=== PATIENT | male | born 1995 | race Caucasian/White ===

== ENCOUNTER → 2023-02-13 | Outpatient (CLI) | payer BC, SELFPAY ==
[2023-02-13 12:23] LABS: Absolute Lymphocyte Count 3.13 X10^3/uL (0.83-4.51); Absolute Neutrophil Count 7.8 X10^3/uL (2.0-7.7); Basophil% 0.8 % (0-1); Eosinophil# 0.18 X10^3/uL; Eosinophils% 1.5 % (0-5); Hematocrit 43.1 % (40-54); Hemoglobin 14.3 g/dL (13.0-16.5); Lymphocyte # 3.13 X10^3/ul (0.83-4.51); Lymphocyte % 26.1 % (19-41); Mean Corp Hgb Conc 33.2 g/dL (32-36); Mean Corpuscular Hgb 27.8 pg (27.0-32.0); Mean Corpuscular Volume 83.7 fL (80-94); Monocyte# 0.77 X10^3/uL; Monocyte% 6.4 % (0-10); NRBC Flagged by Analyzer 0 % (0-5); Neutrophil # 7.76 X10^3/uL (2.7-7.7); Neutrophil % 64.9 % (47-70); Platelet Count 439 K/mm3 (150-450); RBC Distribution Width CV 13.2 % (11.6-14.6); RBC Distribution Width SD 40.6 fl (35.1-43.9); Red Blood Count 5.15 M/mm3 (4.6-6.2)
[2023-02-13 12:42] LABS: AST(SGOT) 28 U/L (15-37); Alanine Aminotransfer ALT/SGPT 42 U/L (16-61); Alkaline Phosphatase 109 U/L (45-117); Anion Gap 7 (5-15); BUN 9 mg/dL (7-18); BUN/Creat Ratio 9.9 RATIO (10-20); Calcium,Total 9.1 mg/dL (8.5-10.1); Chloride 106 mmol/L (98-107); Cholesterol 233 mg/dL (200); Creatinine, Serum 0.91 mg/dL (0.70-1.30); EST Glomerular Filtration Rate 106 mL/min (>60); Est Glom Filt Rate - Afr Amer 128 mL/min (>60); Globulin 3.9 g/dL (2.2-4.2); Glucose 85 mg/dL (74-106); High Density Lipoprotein 41 mg/dL; Potassium 4.1 mmol/L (3.5-5.1); Protein, Total 7.9 g/dL (6.4-8.2); Sodium Level 139 mmol/L (136-145); T4 Free Direct 0.92 ng/dL (0.76-1.46); Thyroid Stim Hormone (TSH) 2.92 uIU/mL (0.358-3.74); Triglycerides 101 mg/dL; Very Low Density Lipoprotein 20 mg/dL (5-40)
[2023-02-13 12:47] LABS: T3 Total - Triiodothyronine 1.23 ng/mL (0.6-1.81); Vitamin D,25 Hydroxy 22.8 ng/mL
== END | disposition home or self-care (01) ==
LOC: BIMLAB 11:04
PROVIDERS: PCP Internal Medicine; Referring Provider Internal Medicine; Visit Provider Internal Medicine
DX: R00.2 Palpitations (principal); E07.9 Disorder of thyroid, unspecified; Z13.6 Encounter for screening for cardiovascular disorders
CPT/HCPCS: 36415; 80053; 80061; 82306; 84439; 84443; 84480; 85025

== ENCOUNTER → 2023-03-08 | Outpatient (CLI) | payer BC, SELFPAY ==
--- NOTE | 2023-03-08 08:53 | ECHOCS_ITS ---
Reason For Study: Palpitations Procedure This was a 2D Doppler, Color Flow transthoracic echocardiogram. Contrast injection was performed. Exam performed in department. Left Ventricle Normal LV size. Left ventricular systolic function is normal. The estimated ejection fraction is 60 %. No regional wall motion abnormalities noted. Right Ventricle Normal RV size. Normal systolic function. Atria Normal left atrium. Normal right atrium. Mitral Valve Normal mitral valve. Tricuspid Valve Normal tricuspid valve. Mild tricuspid valve insufficiency. Aortic Valve Trisinus/trileaflet aortic valve. Pulmonic Valve Normal pulmonic valve. Great Vessels Normal aortic root. The pulmonary artery is normal size. Normal inferior vena cava. Pericardium/Pleural No pericardial effusion. Medication Diluted definity 2.5ml given slow IV push to enhance endocardial definition. MMode/2D Measurements & Calculations LVIDd: 5.1 cm IVSd: 1.0 cm Ao root diam: 2.9 cm LVIDs: 3.4 cm LVPWd: 0.97 cm RVDd: 4.6 cm FS: 33.2 % LAV(MOD-bp): 30.1 ml LVAd ap4: 35.6 cm2 SV(MOD-sp4): 79.5 ml LAV(MOD-bp) Indexed: 13.2 ml/m2 LVLd ap4: 8.7 cm LAV(MOD-sp2): 27.4 ml EDV(MOD-sp4): 120.1 ml LAV(MOD-sp4): 29.4 ml EDV(sp4-el): 123.9 ml LVAs ap4: 18.1 cm2 LVLs ap4: 6.6 cm ESV(MOD-sp4): 40.6 ml ESV(sp4-el): 41.7 ml EF(MOD-sp4): 66.2 % EF(sp4-el): 66.4 % SV(sp4-el): 82.2 ml LA A4 area: 12.9 cm2 LA dimension(2D): 3.7 cm RA A4 area: 14.0 cm2 Time Measurements MV dec time: 0.21 sec Doppler Measurements & Calculations MV E max jesus: 120.7 cm/sec Lat Peak E' Jesus: 15.2 cm/sec Med Peak E' Jesus: 10.5 cm/sec MV A max jesus: 42.5 cm/sec E/E' lat: 8.0 E/E' med: 11.5 MV E/A: 2.8 MV dec slope: 577.4 cm/sec2 Ao V2 max: 120.6 cm/sec LV V1 max: 102.1 cm/sec Ao max P.8 mmHg LV V1 max P.2 mmHg Ao V2 mean: 81.5 cm/sec Ao mean P.1 mmHg Ao V2 VTI: 26.9 cm PA V2 max: 90.5 cm/sec PI end-d jesus: 107.1 cm/sec TR max jesus: 255.1 cm/sec TR max P.0 mmHg ECHO/Echo Complete W/ Contrast Interpretation Summary Normal LV size. Left ventricular systolic function is normal. The estimated ejection fraction is 60 %. Mild tricuspid valve insufficiency. Contrast injection was performed. Ordering Physician: Tahira Fink Referring Physician: Tahira Fink Performed By: Vandana Voss, MAURISIO, RVT
== END | disposition home or self-care (01) ==
LOC: CVS 08:51
PROVIDERS: PCP Internal Medicine; Referring Provider Internal Medicine; Visit Provider Internal Medicine
DX: R00.2 Palpitations (principal); E07.9 Disorder of thyroid, unspecified
CPT/HCPCS: 93306; Q9957; A4216; C8929

== ENCOUNTER → 2023-05-31 | Outpatient (CLI) | payer BC, SELFPAY ==
[2023-05-31 08:15] LABS: Bacteria 0 SEEN /hpf (None Seen); Mucous, Urine 0 SEEN /hpf (<or=2+); Red Blood Cells-Urine 0 SEEN /hpf (0-5); Squamous Epithelial Cells - UA 0 SEEN /hpf (0-5); White Blood Cells 0 SEEN /hpf (0-5)
[2023-05-31 12:33] LABS: Absolute Lymphocyte Count 2.77 X10^3/uL (0.83-4.51); Absolute Neutrophil Count 5.9 X10^3/uL (2.0-7.7); Eosinophil# 0.16 X10^3/uL; Eosinophils% 1.6 % (0-5); Hematocrit 48.4 % (40-54); Hemoglobin 15.4 g/dL (13.0-16.5); Lymphocyte # 2.77 X10^3/ul (0.83-4.51); Lymphocyte % 28.4 % (19-41); Mean Corp Hgb Conc 31.8 g/dL (32-36); Mean Corpuscular Hgb 27.7 pg (27.0-32.0); Mean Corpuscular Volume 87.2 fL (80-94); Mean Platelet Vol. 10.4 fl (6.2-12.0); Monocyte# 0.75 X10^3/uL; Monocyte% 7.7 % (0-10); NRBC Flagged by Analyzer 0 % (0-5); Neutrophil # 5.92 X10^3/uL (2.7-7.7); Neutrophil % 60.8 % (47-70); Platelet Count 462 K/mm3 (150-450); RBC Distribution Width CV 12.8 % (11.6-14.6); RBC Distribution Width SD 41.1 fl (35.1-43.9); Red Blood Count 5.55 M/mm3 (4.6-6.2); White Blood Count 9.8 K/mm3 (4.4-11.0)
[2023-05-31 12:34] LABS: Color, Urine Yellow (Yellow); Glucose, Dipstick Normal (Normal); Ketone-Dipstick Negative (Negative); Leukocyte Esterase-Dipstick Negative /ul (Negative); Nitrite-Dipstick Negative (Negative); Occult Blood-Urine Negative /ul (Negative); Protein-Dipstick Negative (Negative); Urine Bilirubin Dipstick Negative (Negative); Urine Clarity Clear (Clear); Urine Urobilinogen Normal (Normal)
[2023-05-31 13:17] LABS: PSA,Total- Diagnostic 1.21 ng/mL (0.0-4.0)
[2023-06-06 12:09] LABS: Testosterone, % Free 2.86 % (1.50-4.20); Testosterone, Free 8.44 ng/dL (5.00-21.00); Testosterone, Total 295 ng/dL (264-916)
== END | disposition home or self-care (01) ==
LOC: BIMLAB 08:14
PROVIDERS: PCP Internal Medicine; Referring Provider Internal Medicine; Visit Provider Internal Medicine
DX: R53.83 Other fatigue (principal); R35.0 Frequency of micturition
CPT/HCPCS: 36415; 81001; 84153; 84402; 84403; 85025

== ENCOUNTER → 2023-08-08 | Outpatient (CLI) | payer BC, SELFPAY | END | disposition home or self-care (01) | LOC: SL 11:29 | PROVIDERS: PCP Internal Medicine; Referring Provider Internal Medicine; Visit Provider Internal Medicine | DX: G47.10 Hypersomnia, unspecified (principal); R29.818 Other symptoms and signs involving the nervous system | CPT/HCPCS: 95806 ==

== ENCOUNTER → 2023-09-11 | Outpatient (CLI) | payer BC, SELFPAY | END | disposition home or self-care (01) | LOC: SL 19:53 | PROVIDERS: PCP Internal Medicine; Referring Provider Internal Medicine; Visit Provider Internal Medicine | DX: G47.10 Hypersomnia, unspecified (principal); R29.818 Other symptoms and signs involving the nervous system | CPT/HCPCS: 95810 ==

== ENCOUNTER → 2023-10-03 | Outpatient (CLI) | payer BC, SELFPAY | END | disposition home or self-care (01) | LOC: SL 13:49 | PROVIDERS: PCP Internal Medicine; Visit Provider Internal Medicine | DX: Z46.89 Encounter for fitting and adjustment of other specified devices (principal) ==

== ENCOUNTER → 2023-10-10 | Outpatient (CLI) | payer BC, SELFPAY ==
--- OUTSIDE RECORDS SUMMARY | 2023-10-10 12:34 | XMS RPT_ITS | CCD ---
Author Name Unknown Address [address] [place] [address] Organization [facility] Care Team Providers Care Toppiece Cutter Name Role Phone Unavailable Primary Care Provider Unavailabl e Results Test Name Value Interpretation Reference Range Facil ity Encounters Encounter Date Encounter Type Care Provider Facility Start: 03-17-2017 End: 03-17-2017 Patient encounter procedure [facility] Provider [facility] in Start: 03-17-2017 Results Only Evans Provider [facility] Procedures Date Procedure Procedure Detail Performing Clinician Start: 03-17-2017 CONVERTED SURGICAL PATHOLOGY Evans Provider Plan of Treatment Date Care Activity Detail Author Start: 06-14-2020 Influenza vaccination INFLUENZA (#1) [facility] Start: 2014 Urine microalbumin profile DTAP,TDAP ,TD (1 - Tdap) [facility] Start: 2013 HEPATITIS C SCREENING HEPATITIS C AK MENDEZ [facility] Start: 2013 HIV SCREENING HIV SCREENING [facility] Start: 2006 HPV VACCINE (1 - Mal e 2-dose series) HPV VACCINE (1 - Male 2-dose series) [facility] Social History Date Type Detail Facility Tobacco smoking status NHIS Unknown if ev er smoked [facility] Sex Assigned At Not on file [facility] Summary Purpose Family History No Family History Records Found Advance Directives No Advanced Directives Records Found Additional Source Comments (unrecognized sect ion and content) No Status Records Found INFORMATION SOURCE (unrecogn ized section and content) Source Comments (unrecognize d section and content) In the event this informatio n is protected by the Federal Confidentiality of Alcohol and Drug Abuse Patient Records regulations: The Federal rules restrict any use of the information to criminally investigate or prosecute any alcohol or drug abuse patient.[facility] FOR RECORDS PERTAINING TO PATIENTS WHO ARE OR HAVE BEEN ENROLLED IN A CHEMICAL DEPENDENCY/SUBSTANCEABUSE PROGRAM, SOME INFORMATION MAY BE OMITTED. This clinical summary was aggregated from multiple sources. Caution should be exercised in using it in the provision of clinical care. This summary normalizes information from multiple sources, and as a consequence, information in this document may materially change the coding, format and clinical context of patient data. In addition, data may be omitted in some cases. CLINICAL DECISIONS SHOULD BE BASED ON THE PRIMARY CLINICAL RECORDS. [employer] [facility]. provides no warranty or guarantee of the accuracy or completeness of information in this document.
== END | disposition home or self-care (01) ==
LOC: SL 12:10
PROVIDERS: PCP Internal Medicine; Visit Provider Internal Medicine
DX: Z46.89 Encounter for fitting and adjustment of other specified devices (principal)

== ENCOUNTER → 2024-01-23 | Outpatient (CLI) | payer BC, SELFPAY ==
[2024-01-23 12:04] LABS: Absolute Lymphocyte Count 1.64 X10^3/uL (0.83-4.51); Absolute Neutrophil Count 4.9 X10^3/uL (2.0-7.7); Basophil# 0.05 X10^3/uL; Basophil% 0.7 % (0-1); Eosinophil# 0.11 X10^3/uL; Eosinophils% 1.5 % (0-5); Hematocrit 43.2 % (40-54); Hemoglobin 14.1 g/dL (13.0-16.5); Lymphocyte # 1.64 X10^3/ul (0.83-4.51); Lymphocyte % 22.7 % (19-41); Mean Corp Hgb Conc 32.6 g/dL (32-36); Mean Corpuscular Hgb 28.3 pg (27.0-32.0); Mean Corpuscular Volume 86.6 fL (80-94); Monocyte# 0.54 X10^3/uL; Monocyte% 7.5 % (0-10); NRBC Flagged by Analyzer 0 % (0-5); Neutrophil # 4.86 X10^3/uL (2.7-7.7); Neutrophil % 67.3 % (47-70); Platelet Count 430 K/mm3 (150-450); RBC Distribution Width CV 13.2 % (11.6-14.6); RBC Distribution Width SD 41.6 fl (35.1-43.9); Red Blood Count 4.99 M/mm3 (4.6-6.2); White Blood Count 7.2 K/mm3 (4.4-11.0)
[2024-01-23 12:16] LABS: AST(SGOT) 21 U/L (15-37); Alanine Aminotransfer ALT/SGPT 27 U/L (16-61); Albumin, Serum 3.8 g/dL (3.2-5.0); Alkaline Phosphatase 105 U/L (45-117); Anion Gap 4 (5-15); BUN 16 mg/dL (7-18); BUN/Creat Ratio 17.8 RATIO (10-20); Calcium,Total 8.7 mg/dL (8.5-10.1); Chloride 110 mmol/L (98-107); Cholesterol 159 mg/dL (200); EST Glomerular Filtration Rate 107 mL/min (>60); Est Glom Filt Rate - Afr Amer 129 mL/min (>60); Globulin 3.8 g/dL (2.2-4.2); Glucose 86 mg/dL (74-106); High Density Lipoprotein 46 mg/dL; Protein, Total 7.6 g/dL (6.4-8.2); Sodium Level 140 mmol/L (136-145); Triglycerides 48 mg/dL; Very Low Density Lipoprotein 10 mg/dL (5-40)
== END | disposition home or self-care (01) ==
LOC: BIMLAB 08:34
PROVIDERS: PCP Internal Medicine; Referring Provider Internal Medicine; Visit Provider Internal Medicine
DX: F41.9 Anxiety disorder, unspecified (principal); E78.2 Mixed hyperlipidemia; G47.33 Obstructive sleep apnea (adult) (pediatric)
CPT/HCPCS: 36415; 80053; 80061; 85025

== ENCOUNTER 2024-05-18 09:11 | Emergency (ER) | payer BC, SELFPAY ==
[2024-05-18 09:12] VITALS: BP 150/88; PULSE 108; RESP 16; TEMP 35.4; O2SAT 100
--- NOTE | 2024-05-18 09:35 | EDS_ITS ---
HPI History of Present Illness Chief Complaint: Numb/Ting Informant: patient Onset/Context/Timing Onset: Days Context: Gradual Onset Timing: Continuous Current Severity: Mild Narrative Narrative: 28-year-old male history of ADHD and anxiety. Says he had tingling all over. He is having mild nausea. No vomiting. No diarrhea. No weakness. No incontinence. Patient has used different anxiety meds in the past without significant relief and side effects that he did not like. He currently is seeing a counselor. Prior similar symptoms: Yes Recent Illness/Hospitalization: No PFSH PFSH Medical History ADHD RAFA (generalized anxiety disorder) Thyroid disease Allergies Gonorrhea Home Medications ?Medication ?Instructions ?Recorded ?Last Taken ?Type cetirizine 10 mg capsule (Zyrtec) 10 mg PO DAILY PRN allergy symptoms 01/28/23 Unknown History albuterol sulfate 90 mcg/actuation 2 puff inhalation Q6H PRN 10/31/23 Unknown History aerosol inhaler shortness of breath or wheezing fluticasone propionate 50 2 spray intranasal DAILY PRN 11/07/23 Unknown History mcg/actuation nasal allergy symptoms spray,suspension (Flonase Allergy Relief) Allergy/AdvReac Type Severity Reaction Status Date / Time No Known Allergies Allergy Verified 05/18/24 09:19 Family History Other Adopted Surgical History Hx of appendectomy [place] teeth extracted Social History household members: family current occupational status: employed current occupation: rear load truck driver Smoking Status: Former smoker Smokeless tobacco user: other Electronic Cigarette Use: with nicotine alcohol intake: current alcohol intake frequency: a few times a month substance use type: does not use what type of physical activity do you participate in: walking do you feel safe at home: Yes ROS ROS ED ROS Narrative Denies recent illness. Constitutional Constitutional ED: Denies chills or fever(s) Eyes Eyes: Denies blurry vision ENT ENT ED: Denies ear pain Cardiovascular Cardiovascular: Denies chest pain Respiratory/Chest Respiratory/Chest: Denies cough or dyspnea Gastrointestinal Gastrointestinal: Reports nausea; Denies abdominal pain, constipation, diarrhea, melena or vomiting Genitourinary Genitourinary ED: Denies dysuria or hematuria Musculoskeletal Musculoskeletal: Denies arthralgias Integumentary Denies abscess Neurologic Neurologic: Denies headache(s) Psychiatric Psychiatric: Denies anxiety Endocrine Endocrinology: Denies cold intolerance Hematologic/Lymphatic Hematologic/Lymphatic: Reports none Allergic/Immunologic Allergic/Immunologic ED: Denies mouth swelling, tongue swelling or urticaria EXAM Physical Exam Narrative Exam Narrative: Very well-appearing 20-year-old male. Vital signs are stable afebrile. H EENT exam normal. No droop. Normal speech. Pupils are round reactive light. Extra motions are intact. Neck nontender. Lungs clear to auscultation. Heart regular rhythm rate about 100 no murmur. Chest wall and ribs nontender. Abdomen soft nontender. Moving all 4 extremities. 5 out of 5 mural artist strength. Dorsi plantarflexion intact. He is awake and alert. Answering questions following commands. Neurologic exam normal. NIH is 0. Fingertip to nose and [id number] within normal limits. Back nontender. Const Vital Signs: 05/18/24 09:12 Temperature 95.8 F L Temperature Source Temporal Pulse Rate 108 H Respiratory Rate 16 Blood Pressure 150/88 H Blood Pressure Mean 108 Pulse Ox 100 Oxygen Delivery Method Room Air Positive well nourished and well developed; Negative for cachectic, contractures or unkempt General Appearance ED: well developed and NAD; Negative for unkempt, cachectic, contractures, cyanotic, diaphoretic or pallor Nutritional Appearance: Negative for cachectic HEENT Reports moist mucous membranes Negative for trauma or tenderness Eyes PERRL and EOMs intact bilaterally General Eye ED: Negative for pale conjunctiva, scleral icterus or other Neck no lymphadenopathy, supple and no JVD General: Negative for tenderness Lymph Lymphatic: Negative for other Chest Wall inspection of chest normal and palpation of chest normal Chest: Negative for other Resp normal respiratory effort and clear to auscultation bilaterally Effort and Inspection: Negative for retractions, pain with movement or other Auscultation: Negative for rales, rhonchi, wheezes or diminished lung sounds Cardio regular rate, regular rhythm, S1 normal heart sound, S2 normal heart sound and no murmurs Palpation: Negative for palpable S3 or palpable S4 Rate: Negative for bradycardia, tachycardic or other Rhythm: Negative for abnormal rhythm GI normal to inspection, nondistended, normoactive bowel sounds, non-tender, non- distended and no masses Inspection: Negative for abdominal distention Auscultation: normoactive bowel sounds Palpation: soft; Negative for tender, guarding or rebound tenderness present Back/Spine no CVA tenderness General Back: Negative for CVA tenderness or other Cervical Spine: Negative for cervical spine tenderness Thoracic Spine / Upper Back: Negative for thoracic spinal tenderness or paraspinal muscle tenderness Lumbar Spine / Lower Back: Negative for lumbar spinal tenderness Extremity normal to inspection General Extremety ED: Negative for edema, tenderness or other findings General Extremity: Negative for edema or other findings Neuro oriented x3 and CN's II-XII intact bilaterally Sensorium / Orientation: alert; Negative for orientation impaired, lethargic or stuporous Motor Exam: strength 5/5 throughout; Negative for general weakness or strength abnormal Psych mental status grossly normal Appearance: Negative for unkempt Attitude: No agitated Mood & Affect: Negative for depressed, anxious or tearful Skin no rashes or lesions noted, no wounds and skin turgor normal General Skin Exam: elasticity normal; Negative for jaundice or pallor Lesions: No lesion noted Rashes: No rashes noted Trauma: Negative for abrasion Wounds: Negative for wounds noted MDM MDM MDM Narrative Medical decision making narrative: 28-year-old male complaining of bilateral tingling. He has a completely normal exam and a normal neurologic exam. His vital signs are unremarkable. He denies discussed that I felt this is secondary to anxiety. 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 He drove here today. He is comfortable following up with his counselor and primary care physician. I do not feel any labs or imaging would be of any benefit today. He is comfortable with the plan. Discharge Plan Triage Chief Complaint: Numb/Ting ED Provider: Chad Cooley Dx/Rx/DC Orders Clinical Impression: Anxiety Instructions: Anxiety Disorders Tx Prescriptions: No Action Zyrtec 10 mg capsule 10 mg PO DAILY PRN (Reason: allergy symptoms) albuterol sulfate 90 mcg/actuation HFA aerosol inhaler 2 puff inhalation Q6H PRN (Reason: shortness of breath or wheezing) fluticasone propionate [Flonase Allergy Relief] 50 mcg/actuation spray,suspension 2 spray intranasal DAILY PRN (Reason: allergy symptoms) Rx Instructions: administer into each nostril Primary Care Provider: Tahira Fink Referrals: Tahira Fink MD [Primary Care Provider] - As soon as possible Activity Restrictions/Additional Instructions: This all seems to be related to anxiety. Your exam is normal. Follow-up with your counselor for ways to deal with anxiety. Such as exercise, reading, meditation, walks excetra. Print Language: Mongolian Disposition Disposition: Home, Self Care
[2024-05-18 09:42] VITALS: BP 117/83; PULSE 89; RESP 16; TEMP 36.4; O2SAT 99
== END 2024-05-18 09:57 | disposition home or self-care (01) ==
LOC: ED 09:54
PROVIDERS: Emergency Provider Emergency Medicine; PCP Internal Medicine; Visit Provider Emergency Medicine
DX: F41.9 Anxiety disorder, unspecified (principal); R11.0 Nausea; Z79.899 Other long term (current) drug therapy; Z87.891 Personal history of nicotine dependence
CPT/HCPCS: 99282

== ENCOUNTER 2024-05-19 07:56 | Emergency (ER) | payer BC, SELFPAY ==
[2024-05-19 07:56] VITALS: BP 128/84; PULSE 114; RESP 16; TEMP 35.3; O2SAT 96
--- NOTE | 2024-05-19 08:10 | EKG12_ITS ---
Test Reason : NUMBNESS Blood Pressure : / mmHG Vent. Rate : 091 BPM Atrial Rate : 091 BPM P-R Int : 136 ms QRS Dur : 082 ms QT Int : 354 ms P-R-T Axes : 046 -01 018 degrees QTc Int : 435 ms Normal sinus rhythm Normal ECG Confirmed by Gordon Hooper [id number]), design editor JOVITA KOHLER ([id number]) on 05/21/2024 9:25:11 AM Referred By: Confirmed By:Gordon Hooper
--- NOTE | 2024-05-19 08:13 | EDS_ITS ---
HPI History of Present Illness Chief Complaint: Numb/Ting Narrative Narrative: 28-year-old male past medical history of generalized anxiety disorder, presents with numbness and tingling of his arms and legs that has had since yesterday morning. Initially it was his hands and feet. He was seen in the emergency department yesterday, and was discharged. He states that it has not gone away, and this morning it is worse. He states that he has discomfort and tingling in his bilateral legs up to the level of his thigh. Additionally, the numbness and tingling and discomfort of his arms goes past the elbow. He denies any exacerbating or alleviating factors. He presents with his father today. [facility] Medical History ADHD RAFA (generalized anxiety disorder) Thyroid disease Allergies Gonorrhea Home Medications ?Medication ?Instructions ?Recorded ?Last Taken ?Type cetirizine 10 mg capsule (Zyrtec) 10 mg PO DAILY PRN allergy symptoms 01/28/23 Unknown History albuterol sulfate 90 mcg/actuation 2 puff inhalation Q6H PRN 10/31/23 Unknown History aerosol inhaler shortness of breath or wheezing fluticasone propionate 50 2 spray intranasal DAILY PRN 11/07/23 Unknown History mcg/actuation nasal allergy symptoms spray,suspension (Flonase Allergy Relief) hydroxyzine pamoate 25 mg capsule 50 mg (2 x 25 mg) PO TID PRN 05/19/24 Unknown Rx (Vistaril) anxiety #20 caps Allergy/AdvReac Type Severity Reaction Status Date / Time No Known Allergies Allergy Verified 05/19/24 08:25 Family History Other Adopted Surgical History Hx of appendectomy [place] teeth extracted Social History household members: family current occupational status: employed current occupation: local [employer] truck driver Smoking Status: Former smoker Smokeless tobacco user: other Electronic Cigarette Use: with nicotine alcohol intake: current alcohol intake frequency: a few times a month substance use type: does not use what type of physical activity do you participate in: walking do you feel safe at home: Yes ROS ROS ED ROS Narrative Constitutional: No fever, positive chills. HEENT: No sore throat. No neck pain. No loss of vision. No rhinorrhea. Cardiovascular: No chest pain. No palpitations. No pedal edema. Respiratory: No cough, no shortness of breath. Abdominal: No abdominal pain. No nausea. No vomiting. Genitourinary: No dysuria. No hematuria. Musculoskeletal: Discomfort in bilateral arms and legs no arthralgias. Neurologic: No headaches. No dizziness. No lightheadedness. Positive paresthesias of arms and legs. Skin: No rash. No change in color. Psychiatric: No depression. History of anxiety. EXAM Physical Exam Narrative Exam Narrative: Afebrile. Vital signs noted. Nontoxic-appearing. Cardiovascular examination reveals a positive tachycardia, no murmurs rubs or gallops appreciated. Lungs are clear to auscultation bilaterally. Abdomen soft nontender with normal active bowel sounds. Neurological examination is nonfocal and nonlateralizing. Awake, alert, oriented x 3. Normal cerebellar functioning and pxnirm-lt-oxkg and iyvk-[id number]. NIH stroke scale is 0. Const Vital Signs: 05/19/24 07:56 Temperature 95.6 F L Temperature Source Temporal Pulse Rate 114 H Respiratory Rate 16 Blood Pressure 128/84 H Blood Pressure Mean 98 Pulse Ox 96 Oxygen Delivery Method Room Air MDM MDM MDM Narrative Medical decision making narrative: I reviewed the patient's prior ED visit from yesterday. He does not really like to take medications because he is a local [employer] truck driver, and laboratory tests were not performed. Differential diagnosis includes but not limited to generalized anxiety/panic attack versus paresthesias secondary to electrolyte abnormality versus dehydration. He really has not had any fevers, vomiting, or diarrhea [place] electrolytes. Given that this is a second visit, and he has not seen his primary care provider in a few months, I do feel that baseline laboratories are indicated and he will be bolused normal saline 1 L intravenously in the event that he has any intravascular volume depletion. EKG was obtained and interpreted by myself independently as normal sinus rhythm at 91 bpm without ectopy or acute ST changes. No STEMI. I reviewed his laboratory work and he has normal white count of 7.2, hemoglobin normal at 13.5, platelet count normal at 273. CMP is significant for slightly elevated LFTs with an AST of 63, ALT 110, and alk phos also elevated. This is more nonspecific and I do not feel he needs any acute imaging of his abdomen. I think that his paresthesias may be anxiety and stress related with his history of generalized anxiety disorder and his problem list. Repeat examination after IV fluids at approximately 9:45 AM shows him to subjectively feel the same. He is resting comfortably on the cot. He will have his LFTs rechecked in the next few weeks by his primary care provider and follow-up as an outpatient. He was administered Vistaril 50 mg orally here and prescription written for 20 tablets to take 25 to 50 mg up to 3 times a day as needed. He will follow-up with his psychiatric counselor, stating he has an appointment sometime this month, but he will attempt to move up the appointment. I feel he can be discharged safely home with follow-up. Return instructions reviewed. Disposition is discharged home in stable condition. History & Record Review Discussion w/independent historian: Patient Lab Data Attestation: I reviewed the patient's lab results. Labs: Laboratory Results - last 24 hr 05/19/24 08:20 WBC 7.2 RBC 4.97 Hgb 13.5 Hct 40.6 MCV 81.7 MCH 27.2 MCHC 33.3 RDW Std Deviation 38.5 RDW Coeff of Hollie 12.9 Plt Count 273 MPV 9.9 Immature Gran % (Auto) 0.600 Neut % (Auto) 46.4 L Lymph % (Auto) 44.2 H [place] % (Auto) 6.2 Eos % (Auto) 1.2 Baso % (Auto) 1.4 H Absolute Neuts (auto) 3.4 Absolute Lymphs (auto) 3.20 Nucleated RBC % 0 Sodium 139 Potassium 3.8 Chloride 105 Carbon Dioxide 26.0 Anion Gap 8 BUN 8 Creatinine 0.92 Est GFR (MDRD) Af Amer 126 Est GFR (MDRD) Non-Af 104 BUN/Creatinine Ratio 8.7 L Glucose 92 Calcium 8.8 Magnesium 2.1 Total Bilirubin 0.80 AST 63 H ALT 110 H Alkaline Phosphatase 130 H Total Protein 7.6 Albumin 3.5 Globulin 4.1 Albumin/Globulin Ratio 0.9 Discharge Plan Triage Chief Complaint: Numb/Ting ED Provider: Arnulfo Bernal Dx/Rx/DC Orders Clinical Impression: RAFA (generalized anxiety disorder), Paresthesias, Elevated LFTs Instructions: ED Paraesthesias Prescriptions: New hydroxyzine pamoate [Vistaril] 25 mg capsule 50 mg PO TID PRN (Reason: anxiety) Qty: 20 0RF No Action Zyrtec 10 mg capsule 10 mg PO DAILY PRN (Reason: allergy symptoms) albuterol sulfate 90 mcg/actuation HFA aerosol inhaler 2 puff inhalation Q6H PRN (Reason: shortness of breath or wheezing) fluticasone propionate [Flonase Allergy Relief] 50 mcg/actuation spray,suspension 2 spray intranasal DAILY PRN (Reason: allergy symptoms) Rx Instructions: administer into each nostril Primary Care Provider: Tahira Fink Referrals: Tahira Fink MD [Primary Care Provider] - 1 Week if not improving Activity Restrictions/Additional Instructions: You had abnormal laboratory values and your liver function tests today. Have them rechecked in a few weeks by your primary care provider. Return with new or worsening symptoms. Print Language: Comoran Disposition Disposition: Home, Self Care
[2024-05-19] MEDS: 0.9% Normal Saline (1000mL) 1,000 ML 999 ML IV (08:30)
[2024-05-19 09:01] LABS: Absolute Neutrophil Count 3.4 X10^3/uL (2.0-7.7); Basophil% 1.4 % (0-1); Eosinophil# 0.09 X10^3/uL; Eosinophils% 1.2 % (0-5); Hematocrit 40.6 % (40-54); Hemoglobin 13.5 g/dL (13.0-16.5); Lymphocyte % 44.2 % (19-41); Mean Corp Hgb Conc 33.3 g/dL (32-36); Mean Corpuscular Hgb 27.2 pg (27.0-32.0); Mean Corpuscular Volume 81.7 fL (80-94); Mean Platelet Vol. 9.9 fl (6.2-12.0); Monocyte# 0.45 X10^3/uL; Monocyte% 6.2 % (0-10); NRBC Flagged by Analyzer 0 % (0-5); Neutrophil # 3.36 X10^3/uL (2.7-7.7); Neutrophil % 46.4 % (47-70); POSITIVE MORPHOLOGY YES; Platelet Count 273 K/mm3 (150-450); RBC Distribution Width CV 12.9 % (11.6-14.6); RBC Distribution Width SD 38.5 fl (35.1-43.9); Red Blood Count 4.97 M/mm3 (4.6-6.2); White Blood Count 7.2 K/mm3 (4.4-11.0)
[2024-05-19 09:08] LABS: Differential Indicated SCAN CRITERIA MET
[2024-05-19 09:20] LABS: ALB/GLOB Ratio 0.9 RATIO (0.9-2.4); AST(SGOT) 63 U/L (15-37); Alanine Aminotransfer ALT/SGPT 110 U/L (16-61); Albumin, Serum 3.5 g/dL (3.2-5.0); Alkaline Phosphatase 130 U/L (45-117); Anion Gap 8 (5-15); BUN 8 mg/dL (7-18); BUN/Creat Ratio 8.7 RATIO (10-20); Calcium,Total 8.8 mg/dL (8.5-10.1); Chloride 105 mmol/L (98-107); Creatinine, Serum 0.92 mg/dL (0.70-1.30); EST Glomerular Filtration Rate 104 mL/min (>60); Est Glom Filt Rate - Afr Amer 126 mL/min (>60); Globulin 4.1 g/dL (2.2-4.2); Glucose 92 mg/dL (74-106); Magnesium 2.1 mg/dL (1.6-2.6); Potassium 3.8 mmol/L (3.5-5.1); Protein, Total 7.6 g/dL (6.4-8.2); Sodium Level 139 mmol/L (136-145)
[2024-05-19] MEDS: hydrOXYzine PAM 25 MG Capsule 50 MG PO (09:50)
[2024-05-19 09:57] VITALS: BP 127/66; PULSE 73; RESP 15; TEMP 36.4; O2SAT 98
== END 2024-05-19 09:58 | disposition home or self-care (01) ==
PROVIDERS: Emergency Provider Emergency Medicine; PCP Internal Medicine; Visit Provider Emergency Medicine
DX: F41.1 Generalized anxiety disorder (principal); R20.2 Paresthesia of skin; R94.5 Abnormal results of liver function studies; Z87.891 Personal history of nicotine dependence
CPT/HCPCS: 80053; 83735; 85025; 93005; 96360; 99283; J7030; A4216

== ENCOUNTER → 2024-10-20 | Outpatient (CLI) | payer BC, SELFPAY ==
[2024-10-20 16:41] LABS: Absolute Lymphocyte Count 3.46 X10^3/uL (0.83-4.51); Absolute Neutrophil Count 2.9 X10^3/uL (2.0-7.7); Basophil# 0.05 X10^3/uL; Basophil% 0.7 % (0-1); Eosinophil# 0.12 X10^3/uL; Eosinophils% 1.7 % (0-5); Hematocrit 39.1 % (40-54); Hemoglobin 12.8 g/dL (13.0-16.5); Lymphocyte # 3.46 X10^3/ul (0.83-4.51); Lymphocyte % 48.3 % (19-41); Mean Corp Hgb Conc 32.7 g/dL (32-36); Mean Corpuscular Hgb 27.3 pg (27.0-32.0); Mean Corpuscular Volume 83.4 fL (80-94); Mean Platelet Vol. 9.7 fl (6.2-12.0); Monocyte# 0.62 X10^3/uL; Monocyte% 8.7 % (0-10); NRBC Flagged by Analyzer 0 % (0-5); Neutrophil # 2.88 X10^3/uL (2.7-7.7); Neutrophil % 40.2 % (47-70); Platelet Count 361 K/mm3 (150-450); RBC Distribution Width CV 15.4 % (11.6-14.6); RBC Distribution Width SD 46.5 fl (35.1-43.9); Red Blood Count 4.69 M/mm3 (4.6-6.2); White Blood Count 7.2 K/mm3 (4.4-11.0)
[2024-10-20 17:27] LABS: Vitamin D,25 Hydroxy 34.3 ng/mL
[2024-10-20 17:38] LABS: ALB/GLOB Ratio 0.9 RATIO (0.9-2.4); AST(SGOT) 23 U/L (15-37); Alanine Aminotransfer ALT/SGPT 38 U/L (16-61); Albumin, Serum 3.9 g/dL (3.2-5.0); Alkaline Phosphatase 99 U/L (45-117); Anion Gap 4 (5-15); BUN 12 mg/dL (7-18); BUN/Creat Ratio 19.4 RATIO (10-20); Calcium,Total 9.2 mg/dL (8.5-10.1); Chloride 106 mmol/L (98-107); Creatinine, Serum 0.62 mg/dL (0.70-1.30); EST Glomerular Filtration Rate 163 mL/min (>60); Est Glom Filt Rate - Afr Amer 197 mL/min (>60); Globulin 4.4 g/dL (2.2-4.2); Glucose 87 mg/dL (74-106); Protein, Total 8.3 g/dL (6.4-8.2); Sodium Level 138 mmol/L (136-145)
== END | disposition home or self-care (01) ==
LOC: BIMLAB 14:06
PROVIDERS: PCP Internal Medicine; Referring Provider Internal Medicine; Visit Provider Internal Medicine
DX: G61.0 Guillain-Barre syndrome (principal); E55.9 Vitamin D deficiency, unspecified
CPT/HCPCS: 36415; 80053; 82306; 85025

== ENCOUNTER 2024-12-24 14:00 | Outpatient (RCR) | payer BC, SELFPAY ==
--- NOTE | 2024-09-23 15:42 | HP.OTEVAL ---
Patient's Visit Information Visit Information Visit Information: SEBASTIAN FRANK is a 28 year old M, referred to Occupational Therapy by Dr. Martin Cota MD, with a diagnosis of Guillain- [place] Syndrome. 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 pt symptoms started May 17 2024 ventilated by May 21 2024. Symptoms started with hands and feet did not started to get movement back until jul 11. Pt transferred to [facility] Aug 14 no longer ventilated had trach. pt is now currently approx 4 months since start of symptoms. Pt at [facility] for 39 days total was able to walk out with walker. pt wears B AFOs. Pt does have muscle spasms per pt report all over in which he is on medication for. pt with difficulty with coordination at this time states approx 75% of motor control has returned. 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 Pt is R hand dominant. pt states hands are numb and tingling. can feel tops of hands but not pads of hands. Pain BLE: Current Pain Intensity: 5 Objective Objective/Observation: pr arrives in wheelchair as well as B AFOs. Able to self propel chair retirement back to OT section then requests his father to assist with remainder pushing him to back ROM Shoulder: wfl Elbow: wfl Forearm: wfl Wrist: wfl CMC: wfl MP: wfl IP: wfl Radial Abduction: wfl Palmar Abduction: wfl Opposition: wfl MP: wfl PIP: wfl DIP: wfl Strength Shoulder: shoulder flexion L 14.5# shoulder flexion R 11.5# Elbow: L bicep 21 R 18# tricep L tricep 16.9# R 15.8# Advertising Sales Consultant: L 25# R 5# Lateral Pinch: L and R 2# Tripod Pinch: L and R 0# Strength Comments: L ER 15.5# R ER 9.0# Edema Other: swelling in BLE Sensation Sensation Comments: hypersensitive to temperature L hand D4 and D5 4.08 D1-3 at 4.17 R hand D4 and D5 4.08 D1-3 at 4.17 Nine Hole Peg Right: 64 sec Left: 70 sec Quick DASH-Disab of Arm,Shoulder& Hand Quick DASH Score: 54.5450 Goals Goal:: pt will improve B shoulder flexion strength by 10# or more in order to maximize I in ADL/IADL tasks pt will improve bicep as well as tricep strength by 10# or more in order to maximize I in ADL/IADL tasks pt will improve BUE ER strength by 5# or more in order to maximize I in ADl/IADL tasks pt will improve B packer dried beef strength by 10# or more in order to maximize I in ADL/IADL tasks pt will improve B lateral as well as tripod pinch strength by 3# or more in order to maximize I in ADL and IADL tasks Goal:: pt will demonstrate improved 9 hole peg score by 15 sec or faster in order to improve B UE fine motor control for completion of day to day tasks Goal:: pt will demonstrate improved sensation of B hands evident by improvement in semme denton monofilament test by discharge pt will be able to ID 3/3 items when placed in hand with vision occluded by discharge Goal:: pt will improve quick dash score by 15 points or more in order to maximize functional use of BUEs Rehabilitation General Assessment: This 28 year old male arrives with dx of Guillain-Crestline Syndrome. Pt presents with decreased B UE strength as well as coordination, decreased overall aerobic capacity, decreased reflexes, numbness and tingling as well as hypersensitivity to certain textures impacting performance in day to day abilities. pt would benefit from OT services 2-3x a week for 3-4 weeks in order to return to PLOF. Rehabilitation Potential: Good Anticipated Interventions Anticipated Interventions: A/AAROM/PROM, Strengthening, Triggerpoint Release, Modalities, Orthoses, Joint Protection/Energy Conservation, Fine Motor Coord/Jef, Neuro Reeducation, Sensory Stimulation, Education re Diagnosis, Caregiver Training and Home Program Visit Plan Frequency: 2-3x /Week Duration: 3-4 weeks General Plan: strengthening fine motor control coordination numbness and tingling TEXT: Thank you for the opportunity to evaluate your patient. For Medicare and Medicare HMO plans, please review the plan of care and approve it. It will need to be FAXED BACK to us at [phone] for Medicare purposes. Please let me know if there are questions or concerns regarding this plan of care. Physician Signature: Date:
--- NOTE | 2024-09-25 08:53 | HP.PTEVAL ---
Patient's Visit Information Visit Information Visit Information: SEBASTIAN FRANK is a 28 year old M referred to Physical Therapy by Dr. Martin Cota MD with a diagnosis of Guillain-barre syndrome. Date of Evaluation: 09/25/24 Physical Therapist: Kostas Olivares DPT Visit Plan Frequency: 3x /Week Duration: 8 weeks Plan: 1) BLE strengthening, core strengthening 2) calf stretching, HS stretch 3) gait progression with FWW progressing to LRD 4) functional strengthening 5) stair negotiation 6) balance training. 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 pt symptoms started May 17 2024 ventilated by May 21 2024. Symptoms started with hands and feet did not started to get movement back until jul 11. Pt transferred to [facility] Aug 14 no longer ventilated had trach. pt is now currently approx 4 months since start of symptoms. Pt at [facility] for 39 days total was able to walk out with walker. pt wears B AFOs. Pt does have muscle spasms per pt report all over in which he is on medication for. pt with difficulty with coordination at this time states approx 75% of motor control has returned. 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 Pt. reports wanting to be able to climb in/out of truck. He did report that he is hopeful work out of his AFOs is able. Pain B LE: Pain Intensity (Out of 10): 2 Pain Intensity Range: 4 Objective Objective: POSTURE: Pt. has slight flexed posture in stance. Heavy use of AD for stability. PALPATION: Pt. has no pain with palpation of BLEs. NEURO: Pt. has slight decreased DTR of BLEs. Pt. is unable to rise on heels and toes at this point in time. ROM: Pt. has tightness throughout BLEs. Including very tight HS and hip flexors. Pt. has tightness in B calves as well. MMT: RLE: ankle: DF 3.3#, PF 19.4#, EVR 2.2#, INV 9.5#; knee: ext 48.6#, flexion 23.2#; hip: flexion 23.2#, ext 28.1#, abd 16.3#. LLE: ankle: DF 1.2, PF 19.0#, INV 6.6#, EVR 4.3#; knee: ext 44.5#, flexion 26.5#; hip: flex 17.3#, ext 24.2#, abd 15.1#. 30 sec sit to stand rep test: 9 with use of Ues TU.1sec with FWW GAIT: Pt. ambulated 250' with FWW. He has marked difficulty with foot clearance. He has increased hip flexion to aid in foot clearance. HEavy use of UEs on FWW to manage. Balance/Special Test Scores Lower Extremity Functional Score: 34 Goals Goal 1:: LTG: Pt. to be I with HEP. Goal Time Frame: 4-6 Weeks Goal 2:: LTG: Pt. to have increased BLE and core strength increased by 10# throughout. Goal Time Frame: 6-8 Weeks Goal 3:: LTG: Pt. to complete TUG with time less than 10sec with LRD. Goal Time Frame: 4-6 Weeks Goal 4:: LTG: pt. to negotiate steps with 2 HR with reciprocal pattern. Goal Time Frame: 4-6 Weeks Goal 5:: LTG: Pt. to ambulate with SPC with good safe gait pattern allowing for increased independence. Goal Time Frame: 8-12 Weeks Goal 6:: LTG: Pt. to complete 30sec sit to stand rep test wtih 15 reps without use of UEs. Goal Time Frame: 6-8 Weeks Rehabilitation Potential Physical Therapy Diagnosis: Pt. has signs and symptoms consistent with GBS. Pt. has marked weakness in BLEs and core, he has difficulty with gait, transfers and general mobility. Pt. would benefit from PT to address the above limitations progressing back to all recreational and work activities. Rehabilitation Potential: Excellent Anticipated Interventions Patient/Client Instruction: Educate patient on: Condition, Plan of Care, Risk Factors and Benefits of Fitness Program For the Purpose of:: To facilitate caregiver knowledge, To improve self management, To prevent re-injury, To improve ability to perform tasks related to life management and To improve tolerance to ADL's Therapeutic Exercise to Include: Strength training, Power training, Endurance training, Balance training, Body mechanics, Postural training, Flexibilty training, Gait and locomotor training, Passive ROM and Active ROM For the Purpose of:: To decrease pain, To increase ROM, To improve nutrient delivery to tissue, To increase oxygenation perfusion, To improve muscle performance and motor function, To improve ability to perform ADL's, To increase tolerance to activity/condition/position, To improve performance and independence with ADL's, To decrease level of supervision to perform tasks, To improve ability of physical actions for home/community/work/leisure, To decrease soft tissue restriction, To increase flexibility/ROM, To improve endurance, To improve balance and To improve safety with gait Text: Thank you for the opportunity to evaluate your patient. For Medicare and Medicare HMO plans, please review the plan of care and approve it. It will need to be FAXED BACK to us at [phone] for Medicare purposes. For Medicare only, by signing this I certify the plan of care. Please let me know if there are questions or concerns regarding this plan of care. Physician Signature: Date:
--- NOTE | 2024-10-13 10:31 | HP.OTREVAL ---
Re-Evaluation Intro: Dr. Martin Cota MD, It has been my pleasure to treat SEBASTIAN FRANK over the last 10 visits for Guillain- [place] Syndrome. Please see the progress note below for an update on the occupational therapy plan of care! Subjective Subjective: pt arrives after PT doing well no new concerns. Objective Objective/Function: L shoulder: 19.7# from 14.5# R shoulder: 15.0# from 11.5# L ER: 20.3# from 15.5# R ER: 16.8# from 9# L Quarry Supervisor: 45# from 25# R Quarry Supervisor: 35# from 5# L lateral: 8# from 2# R lateral: 5# from 2# L tripod: 5# from 0# R tripod: 3# from 0# L hand semmes now 3.61 all digits R hand semmes now 3.22 D3-5 and 3.61 D1-2 9 hole peg assessment: L hand 48 sec from 70 sec R hand 39 sec from 64 sec stereognosis: L hand 2/3 R hand 3/3 Plan Plan Frequency: 2-3x /Week Duration: 3-4 weeks Visits in this POC: 3-4 weeks (2-3 x week) Plan: Continue POC: 3-4 weeks (2-3 x week) Goals Goals Patient Goals: Regain Strength, Decrease Pain, Return to Work, Improve Fine Motor Skills, Use Hand/Wrist/Arm Normally Again, Sleep Better, Decrease Tingling/Numbness, Resume Former Household Responsibilities (Cooking,Cleaning,Yard, etc.) and Resume Hobbies Goal:: pt will improve B shoulder flexion strength by 10# or more in order to maximize I in ADL/IADL tasks pt will improve bicep as well as tricep strength by 10# or more in order to maximize I in ADL/IADL tasks pt will improve BUE ER strength by 5# or more in order to maximize I in ADl/IADL tasks pt will improve B form setter metal road forms strength by 10# or more in order to maximize I in ADL/IADL tasks pt will improve B lateral as well as tripod pinch strength by 3# or more in order to maximize I in ADL and IADL tasks Goal:: pt will demonstrate improved 9 hole peg score by 15 sec or faster in order to improve B UE fine motor control for completion of day to day tasks Goal:: pt will demonstrate improved sensation of B hands evident by improvement in semme denton monofilament test by discharge pt will be able to ID 3/3 items when placed in hand with vision occluded by discharge Goal:: pt will improve quick dash score by 15 points or more in order to maximize functional use of BUEs Anticipated Interventions Anticipated Interventions Anticipated Interventions: A/AAROM/PROM, Strengthening, Triggerpoint Release, Modalities, Orthoses, Joint Protection/Energy Conservation, Fine Motor Coord/Jef, Neuro Reeducation, Sensory Stimulation, Education re Diagnosis, Caregiver Training and Home Program Re-Evaluation Ending Re-evaluation ending: Please do not hesitate to contact me at [phone] by phone or if you have questions or concerns regarding this new plan of care! Sincerely, Nancy Nieto
--- NOTE | 2024-10-23 13:02 | HP.PTREVAL_ITS ---
Re-Evaluation Intro: Dr. Martin Cota MD, It has been my pleasure to treat SEBASTIAN FRANK over the last 14 visits for Guillain-barre syndrome. Please see the progress note below for an update on the physical therapy plan of care! Subjective Subjective: Pt. reports seeing neurology and is still having issues with his sensation in his feet and with his LE strength, LLE more than R side. He did report falling while walking into PT this date in parking lot. He reports being okay, but he reports his foot got caught. I talked to him about using his AFO and he would prefer not to. Objective Objective/Function: MMT AT IE: RLE: ankle: DF 3.3#, PF 19.4#, EVR 2.2#, INV 9.5#; knee: ext 48.6#, flexion 23.2#; hip: flexion 23.2#, ext 28.1#, abd 16.3#. LLE: ankle: DF 1.2, PF 19.0#, INV 6.6#, EVR 4.3#; knee: ext 44.5#, flexion 26.5#; hip: flex 17.3#, ext 24.2#, abd 15.1#. CURRENT: RLE: ankle: DF 6.0#, PF 24.3#, INV 10.9#, EVR: 9.8#; knee: ext 58.3#, flexion 36.2#; hip: flexion 43.3#, abd 38.0#, ext 42.4# LLE: ankle: 1.2#, PF 33.0#, knee: ext: 48.6#, [id number]#; hip: flexion 44.6##, abd 33.6#, ext 43.2# Pt. continues to be weakest with DF and knee ext on the L side. HIs TUG has drastically improved GAIT: Pt. ambulates with SPC, but has marked L hip flexion to accommodate for his L ankle DF weakness STAIRS: reciprocal pattern with 1 HR with difficulty with controlled LLE loading. He continues to have difficulty with controlled L LE DF eccentric control. He thus has marked foot slap during L initial contact. He needs to continue to progress his L LE strength, especially with knee extension and DF. No issues from falling earlier this date. He reports his leg git caught in door. I did talk to him about using L AFO as this leg is much weaker. He did not want to use right now. Plan Plan Plan: I am extending his POC x3 per week for 4 weeks. Progress functional strengthening, LLE strengthening, especially L DF and knee extension. 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 I added new goal of 1200' with 6 MWT Balance/Gait/Functional tests Balance/Special Test Scores Lower Extremity Functional Score: 39 TUG Test Time Seconds: 13.4 Tug Test: <20 sec.=mostly independent 30 Second Chair Rise Test Seconds: 14 6 Minute Walk Test: 859 feet with SPC. Goals Goals Goal 1:: LTG: Pt. to be I with HEP. Goal Time Frame: 4-6 Weeks Goal Progress: Goal Met Goal 2:: LTG: Pt. to have increased BLE and core strength increased by 10# throughout. Goal Time Frame: 6-8 Weeks Goal Progress: Progressing Goal 3:: LTG: Pt. to complete TUG with time less than 10sec with LRD. Goal Time Frame: 4-6 Weeks Goal Progress: Progressing Goal 4:: LTG: pt. to negotiate steps with 2 HR with reciprocal pattern. Goal Time Frame: 4-6 Weeks Goal 5:: NEW GOALS: LTG: Pt. to complete 6 MWT with distance of 1200feet with LRD. Goal Time Frame: 8-12 Weeks Goal Progress: Progressing Goal 6:: LTG: Pt. to complete 30sec sit to stand rep test wtih 15 reps without use of UEs. Goal Time Frame: 6-8 Weeks Goal Progress: Progressing Anticipated Interventions Anticipated Interventions Patient/Client Instruction: Educate patient on: Condition, Plan of Care, Risk Factors and Benefits of Fitness Program For the Purpose of:: To facilitate caregiver knowledge, To improve self management, To prevent re-injury, To improve ability to perform tasks related to life management and To improve tolerance to ADL's Therapeutic Exercise to Include: Strength training, Power training, Endurance training, Balance training, Body mechanics, Postural training, Flexibilty training, Gait and locomotor training, Passive ROM and Active ROM For the Purpose of:: To decrease pain, To increase ROM, To improve nutrient delivery to tissue, To increase oxygenation perfusion, To improve muscle performance and motor function, To improve ability to perform ADL's, To increase tolerance to activity/condition/position, To improve performance and indep endence with ADL's, To decrease level of supervision to perform tasks, To improve ability of physical actions for home/community/work/leisure, To decrease soft tissue restriction, To increase flexibility/ROM, To improve endurance, To improve balance and To improve safety with gait Re-Evaluation Ending Re-evaluation ending: Please do not hesitate to contact me at [phone] by phone or if you have questions or concerns regarding this new plan of care! Sincerely, EFRAIN HarrisT
--- NOTE | 2024-11-13 10:37 | HP.PTREVAL ---
Re-Evaluation Intro: Dr. Martin Cota MD, It has been my pleasure to treat SEBASTIAN FRANK over the last 22 visits for Guillain-barre syndrome. Please see the progress note below for an update on the physical therapy plan of care! Subjective Subjective: Pt. reports being 90% better overall. Pt. did slip in his kitchen when his shoes were wet after being outside. Pt. reports having some R knee since. This is getting better. 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 Pt. Objective Objective/Function: MMT: Pt. has good strength throughout BLEs. Pt. GAIT: Pt. ambulates with and without SPC. Pt. does have noticeable foot slap on LLE during eccentric DF STAIRS: no issues with stairs with use of 1 HR Overall Sebastian has improved a lot since I last saw him. He is still however having trouble with his L DF strength, still 1+/5. He is compensating with him flexion during gait. We did talk about using an AFO for safety, pt. is in the process of getting one. I want him to cont. to work on DF both actively and with assistance. Plan Plan Plan: Cont. to work DF on L side, use quick stretch techniques, active assistive motions. Progress functional strengtheing as well including picking heavier objects from floor, deadlifting, carrying object. All with the focus on getting increased stability with dynamic movements in order to get back to work. Balance/Gait/Functional tests Balance/Special Test Scores Lower Extremity Functional Score: 38 TUG Test Time Seconds: 9.0 Tug Test: <10 sec.=free mobile 30 Second Chair Rise Test Seconds: 15 6 Minute Walk Test: 1144 feet with SPC. foot pain and fatigue. Goals Goals Goal 1:: LTG: Pt. to be I with HEP. Goal Time Frame: 4-6 Weeks Goal Progress: Goal Met Goal 2:: LTG: Pt. to have increased BLE and core strength increased by 10# throughout. Goal Time Frame: 6-8 Weeks Goal Progress: Progressing Goal 3:: LTG: Pt. to complete TUG with time less than 10sec with LRD. Goal Time Frame: 4-6 Weeks Goal Progress: Progressing Goal 4:: LTG: pt. to negotiate steps with 2 HR with reciprocal pattern. Goal Time Frame: 4-6 Weeks Goal Progress: Progressing Goal 5:: NEW GOALS: LTG: Pt. to complete 6 MWT with distance of 1200feet with LRD. Goal Time Frame: 8-12 Weeks Goal Progress: Progressing Goal 6:: LTG: Pt. to complete 30sec sit to stand rep test wtih 15 reps without use of UEs. Goal Time Frame: 6-8 Weeks Goal Progress: Goal Met Anticipated Interventions Anticipated Interventions Patient/Client Instruction: Educate patient on: Condition, Plan of Care, Risk Factors and Benefits of Fitness Program For the Purpose of:: To facilitate caregiver knowledge, To improve self management, To prevent re-injury, To improve ability to perform tasks related to life management and To improve tolerance to ADL's Therapeutic Exercise to Include: Strength training, Power training, Endurance training, Balance training, Body mechanics, Postural training, Flexibilty training, Gait and locomotor training, Passive ROM and Active ROM For the Purpose of:: To decrease pain, To increase ROM, To improve nutrient delivery to tissue, To increase oxygenation perfusion, To improve muscle performance and motor function, To improve ability to perform ADL's, To increase tolerance to activity/condition/position, To improve performance and independence with ADL's, To decrease level of supervision to perform tasks, To improve ability of physical actions for home/community/work/leisure, To decrease soft tissue restriction, To increase flexibility/ROM, To improve endurance, To improve balance and To improve safety with gait Re-Evaluation Ending Re-evaluation ending: Please do not hesitate to contact me at [phone] by phone or if you have questions or concerns regarding this new plan of care! Sincerely, Kostas Olivares DPT
--- NOTE | 2024-11-19 15:44 | HP.OTDCSUM ---
Discharge Summary D/C Summary: It has been my pleasure to treat SEBASTIAN FRANK under orders from Dr. Martin Cota MD, for the diagnosis of Guillain- [place] Syndrome for a total of 13 visit(s). Please see the following information for a summary of their discharge status. Overall Improvement % Improvement: 90 Objective Objective/Function: monofilament right Thumb 2.83 left 2.83 right IF 3.61 left 3.22 right MF 3.22 left 3.61 right RF 2.83 left 2.83 right LF 2.83 L 2.83 pt continues to make gains with his sensation Goals Patient Goals: Regain Strength, Decrease Pain, Return to Work, Improve Fine Motor Skills, Use Hand/Wrist/Arm Normally Again, Sleep Better, Decrease Tingling/Numbness, Resume Former Household Responsibilities (Cooking,Cleaning,Yard, etc.) and Resume Hobbies Goal:: pt will improve B shoulder flexion strength by 10# or more in order to maximize I in ADL/IADL tasks L 26.1 R 26.2 GOAL MET pt will improve bicep as well as tricep strength by 10# or more in order to maximize I in ADL/IADL tasks L 35.6# R 32.6# GOAL MET pt will improve BUE ER strength by 5# or more in order to maximize I in ADl/IADL tasks L 27.8# R 22.1# GOAL MET pt will improve B design drafter strength by 10# or more in order to maximize I in ADL/IADL tasks L 70# R 60# GOAL MET pt will improve B lateral as well as tripod pinch strength by 3# or more in order to maximize I in ADL and IADL tasks L lateral 10# R lateral 10# L tripod 8# R tripod 10# GOAL MET Goal:: pt will demonstrate improved 9 hole peg score by 15 sec or faster in order to improve B UE fine motor control for completion of day to day tasks R 30 sec L 29 sec GOAL MET Goal:: pt will demonstrate improved sensation of B hands evident by improvement in semme denton monofilament test by discharge L hand LF and thumb 3.61 all other digits 3.84 R hand LF and thumb 3.61 all other digits 3.84 GOAL MET pt will be able to ID 3/3 items when placed in hand with vision occluded by discharge GOAL MET Goal:: pt will improve quick dash score by 15 points or more in order to maximize functional use of BUEs GOAL MET Plan Plan: discharge D/C Information Discharge Comments: pt arrived with dx of Guillain-[place] syndrome. pt demonstrates significant progress made in UB strength as well as fine motor, sensation and overall functional use of BUEs. discharge from OT at this time. pt in agreeance. d/c sentence: If there are questions or concerns regarding this patient's occupational therapy, please fell free to call me at [phone]. Thank you for the referral of this patient. Sincerely, Nancy Nieto
--- NOTE | 2024-11-19 15:44 | HP.OT.NRP ---
Patient Information Patient Information: SEBASTIAN FRANK was seen in my office for initial evaluation on 09/23/24. The following Plan of Care was established for this patient: POC Established Initial Frequency: 2-3x /Week Initial Duration: 3-4 weeks Plan: discharge Anticipated Interventions Anticipated Interventions: A/AAROM/PROM, Strengthening, Triggerpoint Release, Modalities, Orthoses, Joint Protection/Energy Conservation, Fine Motor Coord/Jef, Neuro Reeducation, Sensory Stimulation, Education re Diagnosis, Caregiver Training and Home Program Last Seen Last Seen: This patient was last seen in our office 11/19/24. Pertinent comments regarding their Occupational therapy will appear below: pt arrived with dx of Guillain-Eccles syndrome. pt demonstrates significant progress made in UB strength as well as fine motor, sensation and overall functional use of BUEs. discharge from OT at this time. pt in agreeance. At this point I will be discontinuing this patient from occupational therapy. I would be happy to see this patient again in the future if found appropriate by the physician. Thank you! Nancy Nieto
== END 2024-12-24 19:00 | disposition home or self-care (01) ==
LOC: PT 14:00
PROVIDERS: PCP Internal Medicine; Referring Provider Physical Medicine & Rehabilitation; Visit Provider Physical Medicine & Rehabilitation
DX: G61.0 Guillain-Barre syndrome (principal)
CPT/HCPCS: 97014; 97110; 97140; 97161; 97165; 97530; G0283

== ENCOUNTER → 2024-12-30 | Outpatient (CLI) | payer BC, SELFPAY | END | disposition home or self-care (01) | LOC: LABSPEC 11:19 | PROVIDERS: PCP Internal Medicine; Referring Provider Internal Medicine; Visit Provider Internal Medicine | DX: R68.89 Other general symptoms and signs (principal) | CPT/HCPCS: 87631 ==